=== PATIENT | female | born 1950 ===

== ENCOUNTER 2017-04-22 09:02 | Outpatient (CLI) | payer MEDICARE ==
--- NOTE | 2017-04-22 09:15 | SJPRAD ---
2 VIEWS CHEST: Date: 04/22/17 HISTORY: Chest pain. FINDINGS: PA and lateral views of chest obtained. The lungs are well aerated. No evidence of active intrathorac ic disease seen. No evidence of effusions, pneumonia, or pneumothorax seen. IMPRESSION: Normal 2 views chest. POS: [facility]
== END 2017-04-22 09:03 | disposition home or self-care (01) ==
LOC: MWLC RAD 09:02
PROVIDERS: ATTEND Family Medicine
DX: R07.9 Chest pain, unspecified (principal)